=== PATIENT | female | born 1990 | race Hispanic/Latino ===

== ENCOUNTER 2018-05-09 15:11 | Emergency (ER) | payer OTHER, SELFPAY ==
[2018-05-09 15:13] VITALS: BP 112/73; PULSE 96; RESP 16; TEMP 36.7; O2SAT 99; BMI 22.8
--- NOTE | 2018-05-09 17:01 | CT_ITS ---
STUDY: CT BRAIN WITHOUT CONTRAST REASON FOR EXAM: Female, 27 years old. Paresthesias of the left arm for one week RADIATION DOSAGE (If Supplied By Facility): CTDIvol = ( 44.99 ) mGy, DLP = ( 694.87 ) mGycm TECHNIQUE: Transaxial CT imaging of the brain was performed without administration of intravenous contrast material. Individualized dose optimization techniques were used for this CT. COMPARISON: None. FINDINGS: Normal soft tissue structures. Normal calvarium. Normal size ventricles and extra-axial spaces for the patient's age. Normal white matter tracts of the cerebral hemispheres. Normal basal ganglia and thalami. Normal brainstem. Normal cerebellum. There is no intracranial hemorrhage. There are no findings of an acute ischemic infarction. Normal visualized paranasal sinuses. CT/Brain/Head without Contrast IMPRESSION: Normal unenhanced CT scan of the brain. Electronically Signed: Isael Chilel MD at 18:50 EST , Service support ,
[2018-05-09] MEDS: 0.9% Normal Saline 1,000 ML 150 ML IV (17:27)
[2018-05-09 17:40] LABS: Anion Gap 7 (5-15); BUN 18 mg/dL (7-18); BUN/Creat Ratio 27.4 RATIO (10-20); Calcium,Total 8.9 mg/dL (8.5-10.1); Chloride 106 mmol/L (98-107); Creatinine, Serum 0.66 mg/dL (0.55-1.02); EST Glomerular Filtration Rate 113 mL/min (>60); Est Glom Filt Rate - Afr Amer 137 mL/min (>60); Glucose 116 mg/dL (74-106); Sodium Level 139 mmol/L (136-145)
[2018-05-09 17:54] LABS: Pregnancy, Serum, hCG Quali. NEGATIVE Negative (0-9 Nonpreg)
[2018-05-09 18:05] LABS: Absolute Lymphocyte Count 3.06 X10^3/ul (0.83-4.51); Absolute Neutrophil Count 4.7 X10^3/uL (2.0-7.7); Basophil# 0.03 X10^3/uL; Basophil% 0.4 % (0-1); Eosinophil# 0.15 X10^3/uL; Eosinophils% 1.8 % (0-5); Hematocrit 41.2 % (37-47); Hemoglobin 12.9 g/dl (12.0-15.0); Lymphocyte # 3.06 X10^3/ul (4.0); Mean Corp Hgb Conc 31.3 g/gl (32-36); Mean Corpuscular Hgb 26.7 pg (27.0-32.0); Mean Corpuscular Volume 85.1 fL (81-99); Mean Platelet Vol. 8.4 fl (6.2-12.0); Monocyte% 3.6 % (0-10); Neutrophil # 4.72 X10^3/uL (2.7-7.7); Platelet Count 367 K/mm3 (150-450); RBC Distribution Width CV 13.3 % (11.6-14.6); RBC Distribution Width SD 41.3 fl (35.1-43.9); Red Blood Count 4.84 M/mm3 (4.2-5.4); White Blood Count 8.3 K/mm3 (4.4-11.0)
[2018-05-09 18:06] LABS: POSITIVE COUNT NO; POSITIVE DIFFERENTIAL NO; POSITIVE MORPHOLOGY NO
[2018-05-09 19:13] VITALS: PULSE 88; RESP 16; O2SAT 98
--- NOTE | 2018-05-09 19:55 | ED.VISSUMM ---
- ER Visit Summary Date of Service: 05/09/18 Chief Complaint: [Numbness and tingling to the left arm] History of Present Illness: The patient is a 27 F [presents to the emergency department complaint of numbness and tingling to left arm that started around 7 AM when she woke up she noticed the symptoms were there. Patient states that initially she had a hard time using her left hand but that has since improved. Now the numbness involves only the hand whereas initially it involved the entire arm. Patient also felt off balance but denied vertigo symptoms. She denies any headache. Patient does have a history of migraines but has never had symptoms like this before. Patient initially thought maybe she slept wrong but did not sleep with anything underneath her arm. 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 Patient denies any chest pain or shortness of breath. Patient denies any numbness or tingling in the lower extremities. Patient has no medical history.] Physical Examination: [HEENT-PERRLA, EOMI. Cranial nerves II through XII grossly intact. TMs clear. Mucous membranes moist. No adenopathy. Cardiovascular-regular rate and rhythm without murmur or ectopy Lungs-clear to auscultation, chest wall stable without crepitus or subcu emphysema Abdomen-normoactive bowel sounds, soft, nontender, no rebound or rigidity, no peritoneal signs. Neuro [id number] and heel marcano testing within normal limits, negative Romberg, negative pronator drift, fundi benign. NIH stroke scale was a 1 for paresthesias to the left hand. Extremities-intact ?4, normal range of motion, normal pulses, atraumatic] Test Results: [CT scan of the brain without contrast was normal. CBC with differential is normal. Chemistries were normal. HCG was negative.] Emergency Department Course and Treatment: [On repeat examination patient states that symptoms are improving as far as the numbness to the left hand. I did discuss case with neurologist on-call as I feel patient can follow-up as an outpatient evaluate further. Etiology is unclear however patient has no real stroke risk factors. It is possible this may be a migraine type equivalent. ] Treatment Plan: [Patient to follow-up with neurology] Disposition: [Discharged home stable condition] Impression: [Paresthesias left arm] This note was generated with Dragon dictation software. It may contain incorrect words, spelling, and punctuation that were not noted in review of the chart prior to signing ED Disposition - Plan for ED Patient: Chief Complaint: Numb/Ting Referrals: Care Physician,No Primary [Primary Care Provider] -
[2018-05-09 19:58] VITALS: BP 114/76; PULSE 88; RESP 16; O2SAT 100
--- NOTE | 2018-05-09 19:58 | ED.DEP ---
ED Disposition - Plan for ED Patient: Chief Complaint: Numb/Ting Instructions: ED Paraesthesias Referrals: Care Physician,No Primary [Primary Care Provider] - Marco Arrieta MD [STAFF PHYSICIAN] - 5-7 Days
== END 2018-05-09 20:06 | disposition home or self-care (01) ==
LOC: ED 17:31
PROVIDERS: Emergency Provider Emergency Medicine
DX: R20.2 Paresthesia of skin (principal)
CPT/HCPCS: 70450; 80048; 84703; 85025; 96360; 96361; 99283; J7030